=== PATIENT | female | born 1945 | race Caucasian/White ===

== ENCOUNTER → 2020-06-12 10:02 | Outpatient (CLI) | payer MEDICARE, SELFPAY ==
--- NOTE | ~2020-06-12 | XR_ITS ---
EXAMINATION: XR UGIAC w small bowel DATE: 06/12/2020 14:01 INDICATION: Bloating and belching TECHNIQUE: The patient drank thick barium, gas-producing crystals, and thin barium. Conventional supi ne abdomen radiographs and fluoroscopy of the esophagus, stomach, and small bowel were performed. Flu oroscopy exposure time was 3.4 minutes. The DAP for this procedure was 28.527 Gycm2. COMPARISON: None. FINDINGS: UPPER GASTROINTESTINAL SERIES: There is no mass or stricture of the esophagus. Esophageal motility is normal. There is no hiatal her delvin. There was no gastroesophageal reflux with provocative maneuvers. The stomach shows a normal fold ing pattern. SMALL BOWEL SERIES: Transit time from the stomach to proximal colon was approximately 15 minutes. There is normal caliber and mucosal fold pattern throughout the small bowel. Terminal ileum is normal. No tethering or abn ormal mass effect observed upon the small bowel with real-time fluoroscopy. IMPRESSION: 1. Unremarkable upper GI with small bowel series. Reviewed, dictated and finalized at location B.
== END ==
DX: R14.2 Eructation (principal); R14.0 Abdominal distension (gaseous)
CPT/HCPCS: 74246; 74248

== ENCOUNTER → 2020-07-04 11:30 | Outpatient (CLI) | payer MEDICARE, SELFPAY ==
--- NOTE | ~2020-07-04 | XR_ITS ---
EXAMINATION: XR abdomen/kub 1V DATE: 07/04/2020 11:48 INDICATION: Constipation. Nausea. Abdominal pain. TECHNIQUE: A supine view of the abdomen on 2 radiographs was obtained. COMPARISON: Small bowel series 06/12/2020 FINDINGS: There are no dilated loops of bowel. There is a moderate volume of stool in the colon. Ther e is a new 6 mm density in left pelvis, likely within the bowel lumen. IMPRESSION: 1. Nonobstructive bowel gas pattern. Reviewed, dictated and finalized at location A.
== END ==
DX: K59.00 Constipation, unspecified (principal)
CPT/HCPCS: 74018

== ENCOUNTER → 2021-02-10 10:58 | Outpatient (CLI) | payer MEDICARE, SELFPAY ==
--- NOTE | ~2021-02-10 | CT_ITS ---
EXAMINATION: CT abdomen w con DATE: 02/10/2021 11:49 INDICATION: Epigastric pain, nausea and bloating TECHNIQUE: Computed tomography (CT) of the abdomen and pelvis was performed with 100 cc Omnipaque 350 intravenous contrast. The dose-length product was 566.98 mGy-cm. Automated exposure control and iter ative reconstruction technique were employed. COMPARISON: CT dated 08/20/2014 FINDINGS: Mild emphysematous changes lung bases. Left lower lobe atelectasis. Cardiomegaly. No signif icant pleural or pericardial effusion. There are pacemaker leads present. The liver, spleen, pancreas, adrenal glands are unremarkable. There are small subcentimeter hypodensi ties of the kidneys, most likely benign cysts. No hydronephrosis. No free air or free fluid. Nonobstr uctive bowel pattern. Gallbladder is present. No lymphadenopathy. Mild atherosclerosis. There is a re troaortic left renal vein. No acute osseous abnormality. Mild lumbar spondylosis with grade 1 spondyl olisthesis at L4-5. IMPRESSION: 1. No acute abdominal abnormality. No findings to account for patient's symptoms. Reviewed, dictated and finalized at location B. IMPRESSION: 1. No acute abdominal abnormality. No findings to account for patient's symptom s.
[2021-02-10 11:34] LABS: Estimated Glomerular Filt Rate 40
== END ==
DX: R10.13 Epigastric pain (principal)
CPT/HCPCS: 74160; Q9967

== ENCOUNTER → 2021-02-20 13:04 | Outpatient (CLI) | payer MEDICARE, SELFPAY ==
--- NOTE | ~2021-02-20 | CT_ITS ---
EXAMINATION: CT diagnostic chest wo con DATE: 02/20/2021 13:35 INDICATION: shortness of breath. Right upper back pain. Cough and fatigue. TECHNIQUE: Computed tomography (CT) of the chest was performed without intravenous contrast. Addition al 3D reconstructions utilizing coronal maximum intensity projection (MIP) were performed. Automated exposure control and iterative reconstruction technique were employed. The dose-length product was 41 7.21 mGy-cm. COMPARISON: Chest CT dated 06/26/2005 FINDINGS: Mild emphysema. There is focal fibrosis/scarring along the medial aspect of the right lower lobe whic h appears associated with multiple prominent bridging lumbar osteophytes, the latter consistent with diffuse idiopathic skeletal hyperostosis (DISH). Mild linear discoid atelectasis in the left lower an d right middle lobes. 4 mm pleural-based nodule at the posterior right upper lobe. No pneumonia, pulm onary edema, pleural effusion or pneumothorax. Mild cardiomegaly. Atherosclerotic coronary artery niki cifications. Aortic valve calcification. Left pectoral dual-lead cardiac pacemaker with lead tips at the right atrial appendage and at the apex of the right ventricle. Thoracic aorta is normal in calibe r. No pathologically enlarged thoracic lymphadenopathy. 1.3 cm cyst at the upper pole of the left kid angy. Mild thoracic dextrocurvature with moderate to severe thoracic spondylosis. IMPRESSION: 1. Mild emphysema. 2. Indeterminate 4 mm pleural-based nodule in the right upper lobe. Could consider optional 12 month follow-up low-dose noncontrast chest CT . 3. Mild cardiomegaly. Reviewed, dictated and finalized at location B. IMPRESSION: 1. Mild emphysema. 2. Indeterminate 4 mm pleural-based nodule in the right upper lobe. Could consi tristan optional 12 month follow-up low-dose noncontrast chest CT . 3. Mild cardiomegaly.
== END ==
DX: R06.02 Shortness of breath (principal); J43.9 Emphysema, unspecified; R91.1 Solitary pulmonary nodule; I51.7 Cardiomegaly
CPT/HCPCS: 71250

== ENCOUNTER 2021-08-12 11:30 | Outpatient (RCR) | payer MEDICARE, SELFPAY ==
[2021-07-08 09:45] VITALS: BMI 32.3
[2021-07-08 09:50] VITALS: BMI 32.3
[2021-08-12 11:42] VITALS: BMI 32.3
== END 2021-09-24 10:12 | disposition home or self-care (01) ==
LOC: ANHDMC 11:30
DX: E74.12 Hereditary fructose intolerance (principal); Z71.3 Dietary counseling and surveillance
CPT/HCPCS: 97802; 97803

== ENCOUNTER 2021-08-28 09:02 | Outpatient (CLI) | payer MEDICARE, SELFPAY ==
--- NOTE | ~2021-08-28 | MM_ITS ---
EXAMINATION: MM screening [facility] BI w karina HISTORY: Screening TECHNIQUE: Craniocaudal and mediolateral oblique 3-D tomosynthesis images were obtained and synthetic 2-D images were generated. CAD analysis was submitted and interpreted. COMPARISON: Comparison to multiple prior studies sequentially, with oldest reviewed study dated 08/16. BREAST PARENCHYMAL COMPOSITION: Breast composed of scattered areas of fibroglandular density. FINDINGS: There is no evidence of suspicious mass, calcification, or architectural distortion to sugg est malignancy in either breast. There has been no suspicious interval change. IMPRESSION: 1. No mammographic evidence of malignancy. 2. Recommend routine screening mammography in one year. BI-RADS Category 1: Negative Reviewed, dictated and finalized at location A.
== END 2021-08-28 09:03 | disposition home or self-care (01) ==
DX: Z12.31 Encounter for screening mammogram for malignant neoplasm of breast (principal)
CPT/HCPCS: 77063; 77067

== ENCOUNTER 2022-01-13 20:10 | Emergency (ER) | payer MEDICARE, SELFPAY ==
[2022-01-13 20:13] VITALS: BP 165/88; PULSE 87; RESP 18; TEMP 36.8; O2SAT 100
[2022-01-13 20:40] VITALS: BP 151/66; PULSE 74; RESP 12; TEMP 37; O2SAT 97
[2022-01-14 00:38] VITALS: BP 152/74; PULSE 72; RESP 14; TEMP 36.6; O2SAT 100
--- NOTE | 2022-01-14 00:38 | ED.LOWEXIN ---
HPI - Extremity Injury (Lower) General Chief Complaint: Extremity Injury, Lower <Halima Cook PA-C - Last Filed: 01/14/22 02:37> Stated Complaint: left calf pain <MIKE Canales Last Filed: 01/14/22 02:37> Time Seen by Provider: 01/13/22 21:02 <MIKE Canales Last Filed: 01/14/22 02:37> Source: patient <MIKE Canales Last Filed: 01/14/22 02:37> Mode of arrival: ambulatory <MIKE Canales Last Filed: 01/14/22 02:37> Limitations: no limitations <MIKE Canales Last Filed: 01/14/22 02:37> History of Present Illness HPI Narrative: Patient is a 68-year-old female who presents ED with complaints of left calf cramping. Patient reports she has had issues with this pain for the past month or so. She is usually able to massage or elevated her calf to resolve the pain, but the pain persisted tonight for several hours. She describes the pain as though someone is intermittently squeezing her calf. Patient ran several errands today and did not have any pain until after she was home and resting. She denies any swelling, erythema, or warmth to her calves. She also denies any fever, chills, chest pain, cough, hemoptysis, shortness of breath, back pain. Patient is on warfarin due to her history of atrial fibrillation. Patient denies any recent surgery, immobilization, long distance travel. <MIKE Canales Last Filed: 01/14/22 02:37> Related Data Home Medications: Home Medications Medication Instructions Recorded Confirmed budesonide-formoterol HFA 160 2 puff INHALATION Q12H 06/18/21 06/19/21 mcg-4.5 mcg/actuation aerosol inhaler cholecalciferol (vitamin D3) 50 50 mcg PO DAILY 06/18/21 06/19/21 mcg (2,000 unit) capsule losartan 100 mg tablet 100 mg PO DAILY 06/18/21 06/19/21 warfarin 3 mg tablet 3 mg PO DAILY 06/18/21 06/19/21 <Halima Cook PA-C - Last Filed: 01/14/22 02:37> Allergies/Adverse Reactions: Allergies Allergy/AdvReac Type Severity Reaction Status Date / Time apixaban [From Eliquis] Allergy Severe Rash Verified 06/18/21 15:16 iodine Allergy Unknown rash Verified 06/18/21 15:16 Iodine and Iodide Containing Allergy Unknown RASH/REDNES Verified 06/18/21 15:16 Produc S thimerosal Allergy Unknown RASH/REDNES Verified 06/18/21 15:16 S METAL Allergy Severe RASH Uncoded 06/18/21 15:16 <Halima Cook PA-C - Last Filed: 01/14/22 02:37> Review of Systems Review of Systems: CONSTITUTIONAL: Denies fever, chills, or sweats. CARDIOVASCULAR: Denies chest pain, palpitations, or edema. RESPIRATORY: Denies cough, dyspnea hemoptysis. GASTROINTESTINAL: Denies abdominal pain, nausea, vomiting, or diarrhea. SKIN: Denies redness, warmth, rash or itching. MUSCULOSKELETAL: Reports L calf pain/cramping. Denies back pain, joint pain, or myalgia. NEUROLOGIC: Denies headache, numbness, or weakness. <Halima Cook PA-C - Last Filed: 01/14/22 02:37> All systems reviewed & are unremarkable except as noted in HPI and below <Halima Cook PA-C - Last Filed: 01/14/22 02:37> [facility] Past Medical History Medical History: Medical History Asthma Atrial fibrillation <Halima Cook PA-C - Last Filed: 01/14/22 02:37> Surgical History Surgical History: Surgical History (Updated 01/14/22 @ 02:25 by Halima Cook PA-C) No pertinent past surgical history <Halima Cook PA-C - Last Filed: 01/14/22 02:37> Family History Family History: Family History Father Hypertension Heart disease Other Family history of Parkinson's disease Family history of kidney disease <Halima Cook PA-C - Last Filed: 01/14/22 02:37> Social History Social History: Social History Smoking status: Never smoker Second hand tobacco smoke exposure: N
[2022-01-14 01:31] LABS: Anion Gap 10 mmol/L (8-16); Blood Urea Nitrogen 32 mg/dL (7-17); Calcium 8.8 mg/dL (8.4-10.2); Carbon Dioxide 25 mmol/L (22-30); Chloride 103 mmol/L (98-107); Estimated CRCL calculation 44 ml/min; Estimated Glomerular Filt Rate > 60; Glucose 104 mg/dL (65-110); Magnesium 2.2 mg/dL (1.6-2.3); Potassium 4.1 mmol/L (3.4-5.0); Sodium 138 mmol/L (137-145)
[2022-01-14 02:03] LABS: INR 2.9; Prothrombin Time 29.1 Seconds (11.1-14.7)
[2022-01-14 02:04] LABS: Partial Thromboplastin Time 47.9 SECONDS (22.3-36.8)
[2022-01-14 02:31] VITALS: BP 156/85; PULSE 95; RESP 20; TEMP 36.4; O2SAT 98
[2022-01-14 02:32] VITALS: BP 156/85; PULSE 95; RESP 20; TEMP 36.4; O2SAT 98
[2022-01-14 02:36] VITALS: BP 156/85; PULSE 95; RESP 20; TEMP 36.4; O2SAT 98
== END 2022-01-14 02:42 | disposition home or self-care (01) ==
PROVIDERS: Physician Assistant; Emergency Provider Emergency Medicine
DX: R25.2 Cramp and spasm (principal); M79.662 Pain in left lower leg; Z79.01 Long term (current) use of anticoagulants; J45.909 Unspecified asthma, uncomplicated; I48.91 Unspecified atrial fibrillation
CPT/HCPCS: 36415; 80048; 83735; 85610; 85730; 99283

== ENCOUNTER 2022-10-27 09:50 | Outpatient (CLI) | payer MEDICARE, SELFPAY ==
--- NOTE | ~2022-10-27 | MM_ITS ---
EXAMINATION: MM screening [facility] BI w karina HISTORY: Screening TECHNIQUE: Craniocaudal and mediolateral oblique 3-D tomosynthesis images were obtained and synthetic 2-D images were generated. CAD analysis was submitted and interpreted. COMPARISON: Comparison to multiple prior studies sequentially, with oldest reviewed study dated 08/16. BREAST PARENCHYMAL COMPOSITION: The breasts are almost entirely fatty. FINDINGS: There is no evidence of suspicious mass, calcification, or architectural distortion to sugg est malignancy in either breast. There has been no suspicious interval change. IMPRESSION: 1. No mammographic evidence of malignancy. 2. Recommend routine screening mammography in one year. BI-RADS Category 1: Negative Reviewed, dictated and finalized at location B. 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
== END 2022-10-27 09:51 | disposition home or self-care (01) ==
LOC: ANHIMG 09:53
DX: Z12.31 Encounter for screening mammogram for malignant neoplasm of breast (principal)
CPT/HCPCS: 77063; 77067

== ENCOUNTER 2024-07-06 14:39 | Outpatient (CLI) | payer MEDICARE, SELFPAY ==
--- NOTE | ~2024-07-06 | MM_ITS ---
EXAMINATION: MM screening [facility] BI w karina HISTORY: Screening TECHNIQUE: Craniocaudal and mediolateral oblique 3-D tomosynthesis images were obtained and synthetic 2-D images were generated. CAD analysis was submitted and interpreted. COMPARISON: Comparison to multiple prior studies sequentially, with oldest reviewed study dated 12/2014. BREAST PARENCHYMAL COMPOSITION: Not Dense: The breasts are almost entirely fatty. FINDINGS: There is no evidence of suspicious mass, calcification, or architectural distortion to sugg est malignancy in either breast. There has been no suspicious interval change. IMPRESSION: 1. No mammographic evidence of malignancy. 2. Recommend routine screening mammography in one year. BI-RADS Category 1: Negative Reviewed, dictated and finalized at location B.
== END 2024-07-06 14:40 | disposition home or self-care (01) ==
LOC: ANHIMG 14:42
DX: Z12.31 Encounter for screening mammogram for malignant neoplasm of breast (principal)
CPT/HCPCS: 77063; 77067

== ENCOUNTER 2025-08-16 10:00 | Outpatient (RCR) | payer MEDICARE, SELFPAY | END 2025-08-16 10:53 | disposition home or self-care (01) | LOC: ANHCPREHAB 10:00 | PROVIDERS: Visit Provider Nuclear Medicine Nuclear Cardiology | DX: Z95.2 Presence of prosthetic heart valve (principal) | CPT/HCPCS: 93798 ==